=== PATIENT | male | born 1965 | race African-American/Black ===

== ENCOUNTER 2018-08-16 07:24 | Emergency (ER) | payer BC ==
[2018-08-16 07:47] VITALS: BP 181/90
--- NOTE | 2018-08-16 08:05 | UC ---
Knee Pain HPI - HPI Summary HPI Summary: 1. right knee pain x 5 days hx of arthritis , gets flair ups time to time pain is 8 out of 10 , no radiation, worse with standing and walking better with rest and ibuprofen 2. headaches x 2 days, 5 out of 10 , no radiation, worse with stress better with rest, no n/v/, no photophobia - History of Current Complaint Chief Complaint: UCHeadache Stated Complaint: LEONARD,RT KNEE PAIN Time Seen by Provider: 08/16/18 07:48 Hx Obtained From: Patient Onset/Duration: Gradual Onset, Lasting Days - 5, Still Present Severity Initially: Moderate Severity Currently: Moderate Pain Intensity: 8 Character: Aching Aggravating Factor(s): Movement, Weight Bearing, Prolonged Standing Alleviating Factor(s): Rest, Cold Associated Signs And Symptoms: Positive: Swelling. Negative: Redness, Bruising , Fever, Weakness, Numbness, Tingling Able to Bear Weight: Yes - Allergies/Home Medications Allergies/Adverse Reactions: Allergies Allergy/AdvReac Type Severity Reaction Status Date / Time No Known Allergies Allergy Verified 08/16/18 07:47 Home Medications: Home Medications Amlodipine Besylate [Norvasc] 20 mg PO DAILY 08/16/18 [History Confirmed ] Aspirin 81 mg PO DAILY 08/16/18 [History Confirmed 08/16/18] Lisinopril 10 mg PO QPM 08/16/18 [History Confirmed 08/16/18] Lisinopril/HCTZ 20/25(NF) [Zestoretic 20/25(NF)] 1 tab PO DAILY 08/16/18 [ History Confirmed 08/16/18] Metformin ER (NF) 500 mg PO BID 08/16/18 [History Confirmed 08/16/18] PMH/Surg Hx/FS Hx/Imm Hx Endocrine History: Diabetes Cardiovascular History: Hypertension - Surgical History Surgical History: Yes Surgery Procedure, Year, and Place: bilateral knee surgery x3 - Family History Known Family History: Positive: Hypertension - Social History Alcohol Use: None Substance Use Type: None Smoking Status (MU): Never Smoked Tobacco Review of Systems All Other Systems Reviewed And Are Negative: Yes Constitutional: Positive: Negative Skin: Positive: Negative Eyes: Positive: Negative ENT: Positive: Negative Respiratory: Positive: Negative Musculoskeletal: Positive: Arthralgia Neurological: Positive: Headache Is Patient Immunocompromised?: No Physical Exam Triage Information Reviewed: Yes Appearance: Well-Appearing, No Pain Distress, Well-Nourished Vital Signs: Initial Vital Signs Temp 97.7 F 08/16/18 07:42 Pulse 59 08/16/18 07:42 Resp 18 08/16/18 07:42 BP 181/90 08/16/18 07:42 Pulse Ox 96 08/16/18 07:42 Vital Signs Reviewed: Yes Eye Exam: Normal Eyes: Positive: Conjunctiva Clear ENT: Positive: Normal ENT inspection, Hearing grossly normal, Pharynx normal Neck exam: Normal Neck: Positive: Supple, Nontender, No Lymphadenopathy Respiratory: Positive: Chest non-tender, Lungs clear, Normal breath sounds Cardiovascular: Positive: RRR, No Murmur, Pulses Normal Musculoskeletal: Positive: Other: - right knee : no swelling, no effusion , diffuse tenderness, pain with fexion limited ROM on flexion Neurological: Positive: Alert, Muscle Tone Normal Skin Exam: Normal Knee Pain Course/Dx - Course Course Of Treatment: HTN : cont. with current HTN meds follow up with your pcp in one week - Differential Dx/Diagnosis Provider Diagnosis: Arthritis of right knee, Headache, Hypertension Discharge - Sign-Out/Discharge Documenting (check all that apply): Patient Departure All imaging exams completed and their final reports reviewed: No Studies - Discharge Plan Condition: Stable Disposition: HOME Prescriptions: predniSONE [Prednisone 20 MG TAB] 20 mg PO BID #10 tablet Patient Education Materials: Osteoarthritis (ED), Acute Headache (ED), Hypertension (ED) Forms: *Work Release Referrals: No Primary Care Phys,NOPCP [Primary Care Provider] - 7 Days - Billing Disposition and Condition Condition: STABLE Disposition: Home
== END 2018-08-16 08:07 | disposition home or self-care (01) ==
LOC: UCCORT 07:24
DX: M17.11 Unilateral primary osteoarthritis, right knee (principal); R51 Headache; I10 Essential (primary) hypertension; Z79.82 Long term (current) use of aspirin
CPT/HCPCS: 99202; G0463